=== PATIENT | female | born 1960 | race Caucasian/White ===

== ENCOUNTER 2020-10-07 09:57 | Emergency (ER) | payer OTHER ==
[~2020-10-07] VITALS: Ht 152.4 cm; Wt 55.8 kg
[~2020-10-07 09:57] MED LIST: AMBIEN10 MG; CLONAZEPAM1 MG; CYMBALTA20 MG; TUSSI PRES-B L120 M1 PO; ZITHROMAX TRI-500 MG PO
[2020-10-07] MEDS ORDERED: CLONAZEPAM0.5 MG PO (10:10)
[2020-10-07] MEDS ORDERED: DULOXETINE HCL60 MG PO (10:10)
[2020-10-07] MEDS ORDERED: ZOLPIDEM TARTRA10 MG PO (10:10)
== END 2020-10-07 11:44 | disposition home or self-care (01) ==
LOC: ER 09:57
DX: R22.32 Localized swelling, mass and lump, left upper limb (principal); T50.B95A Adverse effect of other viral vaccines, initial encounter

== ENCOUNTER 2023-07-09 09:52 | Emergency (ER) | payer OTHER ==
[~2023-07-09] VITALS: Ht 152.4 cm; Wt 45.4 kg
[~2023-07-09 09:52] MED LIST changes: +CLONAZEPAM0.5 MG PO; +DULOXETINE HCL60 MG PO; +ZOLPIDEM TARTRA10 MG PO
[2023-07-09 13:38] LABS: ABG PH 7.448 (7.35-7.45); ABG PO2 98.3 mmHg (80-100); ABG pCO2 34.8 mmHg (35-45); BASE EXCESS 0.1 mmol/l; BICARBONATE 23.6 mmol/l (23-25); SaO2 97.9 %; Tco2 24.6 mmol/l
[2023-07-09 13:39] LABS: allen test SATISFACTORY; o2 21 %; puncture site RADIAL LEFT
== END 2023-07-09 13:48 | disposition home or self-care (01) ==
LOC: ER 09:53
PROVIDERS: Emergency Medicine
DX: J22 Unspecified acute lower respiratory infection (principal); F32.89 Other specified depressive episodes; I49.8 Other specified cardiac arrhythmias; Z95.0 Presence of cardiac pacemaker; Z88.0 Allergy status to penicillin; Z88.8 Allergy status to other drugs, medicaments and biological substances